=== PATIENT | male | born 1945 | race Hispanic/Latino ===

== ENCOUNTER 2017-06-15 23:43 | Emergency (ER) | payer MEDICARE, OTHER ==
[~2017-06-15] VITALS: Ht 172.7 cm; Wt 77.4 kg
[~2017-06-15 23:43] MED LIST: AMLODIPINE5 MG PO; ANTIVERT PO; CIPROFLOXACN500 MG PO; CLONIDINE0.1 MG PO; COLACE100 MG PO; DEBROX6.5 % AU; DOXYCYCL HYC100 MG PO; FLEXERIL OR; FLONASE NASAL50 MCG; KEFLEX500 MG PO; LEVOTHYROXIN25 MC1 PO; LISINOPRIL40 MG OR; LORTAB 5/3255 MG PO; MECLIZINE12.5 MG OR; ULTRAM50 M1 OR
[2017-06-15] MEDS ORDERED: AMLODIPINE10 MG PO (23:57)
[2017-06-15] MEDS ORDERED: OMEPRAZOLE20 M2 PO (23:58)
[2017-06-16 00:39] LABS: HEMATOCRIT 42.1 % (39.0-50.0); HEMOGLOBIN 14.5 g/dl (14.0-18.0); IMMATURE GRANULOCYTES 0.3 % (0.0-1.0); MEAN CELL VOLUME 84.4 fL CALC (80.0-100.0); MEAN CORPUSCULAR HGB 29.1 pG CALC (26.0-32.0); MEAN CORPUSCULAR HGB CONC 34.4 g/L CALC (32.0-36.0); NEUT# 3.57 thou/uL (1.82-7.42); RED BLOOD COUNT 4.99 mill/uL (4.70-6.10); RED CELL DISTRI WIDTH 12.4 % (11.5-15.5)
[2017-06-16 00:39] LABS: URINE BILIRUBIN - DIPSTICK NEGATIVE (NEGATIVE); URINE BLOOD DIPSTICK TRACE-LYSED (NEGATIVE); URINE CLARITY CLEAR; URINE COLOR YELLOW; URINE GLUCOSE - DIPSTICK NEGATIVE (NEGATIVE); URINE KETONE NEGATIVE (NEGATIVE); URINE LEUK ESTERASE NEGATIVE (NEGATIVE); URINE NITRITE - DIPSTICK NEGATIVE (Negative); URINE PH 5.5 (4.5-8.0); URINE PROTEIN - DIPSTICK NEGATIVE (NEG-TRACE); URINE UROBILINOGEN - DIPSTICK 0.2 E.U./dL (0.2)
[2017-06-16 00:55] LABS: ALBUMIN 4.7 g/dL (3.2-5.0); ALKALINE PHOSPHATASE 46 u/l (38-126); ANION GAP 17 (6-22 (CALC)); BILIRUBIN, TOTAL 0.7 mg/dL (0.0-1.4); BUN 14 mg/dL (8-23); BUN/CREATININE RATIO 17 (12-20 (CALC)); CALCIUM 9.6 mg/dL (8.4-10.2); CARBON DIOXIDE 27 mmol/l (22-30); CHLORIDE 103 mmol/l (95-108); CREATININE 0.8 mg/dL (0.7-1.3); GFR > 60 ML/MIN (>=60 (CALC)); GFR FOR AFR.AMER. > 60 ML/MIN (>=60 (CALC)); GLUCOSE 121 mg/dL (82-115); POTASSIUM 3.6 mmol/l (3.5-5.1); SGOT/AST 27 u/l (19-48); SGPT/ALT 49 u/l (11-66); SODIUM 144 mmol/l (137-146); TOTAL PROTEIN 7.5 g/dL (6.3-8.2)
[2017-06-16] MEDS ORDERED: ROBITUSSIN AC10 ML PO (01:21)
[2017-06-16] MEDS ORDERED: CIPROFLOXACN500 MG PO (01:21)
[2017-06-16 01:30] VITALS: BP 136/79
== END 2017-06-16 01:30 | disposition home or self-care (01) ==
LOC: ED 23:43
PROVIDERS: Emergency Medicine
DX: J06.9 Acute upper respiratory infection, unspecified (principal); H66.91 Otitis media, unspecified, right ear; R05 Cough; R50.9 Fever, unspecified; I10 Essential (primary) hypertension

== ENCOUNTER 2020-07-26 08:09 | Emergency (ER) | payer MEDICARE, MEDICAID ==
[~2020-07-26] VITALS: Ht 172.7 cm; Wt 75.0 kg
[~2020-07-26 08:09] MED LIST changes: +AMLODIPINE10 MG PO; +OMEPRAZOLE20 M2 PO; +ROBITUSSIN AC10 ML PO
[2020-07-26 08:43] LABS: HEMATOCRIT 44.9 % (39.0-50.0); IMMATURE GRANULOCYTES 0.2 % (0.0-5.0); MEAN CELL VOLUME 85.9 fL CALC (80.0-100.0); MEAN CORPUSCULAR HGB 28.7 pG CALC (26.0-32.0); MEAN CORPUSCULAR HGB CONC 33.4 g/dL CAL (32.0-36.0); NEUT# 8.71 thou/uL (1.82-7.42); RED BLOOD COUNT 5.23 mill/uL (4.70-6.10); RED CELL DISTRI WIDTH 12.5 % (11.5-15.5)
[2020-07-26] MEDS ORDERED: SYNTHROID88 MCG PO (08:45)
[2020-07-26 09:19] LABS: ANION GAP 12 (6-22 (CALC)); BUN 13 mg/dL (8-23); BUN/CREATININE RATIO 15 (12-20 (CALC)); CARBON DIOXIDE 29 mmol/l (22-30); CHLORIDE 103 mmol/l (95-108); CREATININE 0.9 mg/dL (0.7-1.3); GFR > 60 ML/MIN (>=60 (CALC)); GFR FOR AFR.AMER. > 60 ML/MIN (>=60 (CALC)); POTASSIUM 4.2 mmol/l (3.5-5.1); SODIUM 141 mmol/l (137-146)
[2020-07-26 09:39] LABS: URINE BILIRUBIN - DIPSTICK NEGATIVE (NEGATIVE); URINE BLOOD DIPSTICK LARGE (NEGATIVE); URINE COLOR YELLOW; URINE GLUCOSE - DIPSTICK NEGATIVE (NEGATIVE); URINE KETONE NEGATIVE (NEGATIVE); URINE PROTEIN - DIPSTICK 100 mg/dL (NEG-TRACE); URINE SPECIFIC GRAVITY >=1.030; URINE UROBILINOGEN - DIPSTICK 0.2 E.U./dL (0.2)
[2020-07-26 09:41] LABS: URINE LEUK ESTERASE SMALL (NEGATIVE); URINE NITRITE - DIPSTICK POSITIVE (Negative)
[2020-07-26 09:44] LABS: URINE WBC >100 WBC/hpf (0-5)
[2020-07-26 09:45] LABS: URINE RBC >100 RBC/hpf (0-5)
[2020-07-26 09:46] LABS: URINE BACTERIA MANY hpf
[2020-07-26 10:24] VITALS: BP 131/78
[2020-07-26] MEDS ORDERED: OMNI-PAC300 MG PO (10:56)
== END 2020-07-26 11:00 | disposition home or self-care (01) ==
LOC: ED 08:09
PROVIDERS: Family Medicine
DX: G89.18 Other acute postprocedural pain (principal); C61 Malignant neoplasm of prostate; I10 Essential (primary) hypertension; F17.200 Nicotine dependence, unspecified, uncomplicated; Z90.79 Acquired absence of other genital organ(s)
CPT/HCPCS: Q9967

== ENCOUNTER 2021-07-10 09:02 | Day surgery (SDC) | payer MEDICARE, OTHER ==
[~2021-07-10] VITALS: Ht 172.7 cm; Wt 72.6 kg
[~2021-07-10 09:02] MED LIST changes: +BYSTOLIC10 MG PO; +LIPITOR40 M1 PO; +OMNI-PAC300 MG PO; +SYNTHROID88 MCG PO
[2021-07-10] MEDS ORDERED: PERCOCET 5/325M1 TAB PO (11:01)
[2021-07-10 11:54] VITALS: BP 121/72
== END 2021-07-10 12:30 | disposition home or self-care (01) ==
LOC: ORM 09:02
PROVIDERS: ATTEND Surgery
PROC: 0WQF0ZZ Repair Abdominal Wall, Open Approach (ICD-10-PCS; principal; 2021-07-10)
DX: K43.2 Incisional hernia without obstruction or gangrene (principal); F17.210 Nicotine dependence, cigarettes, uncomplicated; Z85.46 Personal history of malignant neoplasm of prostate; Z90.79 Acquired absence of other genital organ(s); Z95.0 Presence of cardiac pacemaker; Z88.0 Allergy status to penicillin
CPT/HCPCS: J0131; J2710

== ENCOUNTER 2021-12-27 06:44 | Day surgery (SDC) | payer MEDICARE, OTHER ==
[~2021-12-27] VITALS: Ht 172.7 cm; Wt 74.4 kg
[~2021-12-27 06:44] MED LIST changes: -AMLODIPINE10 MG PO; +LEVOTHYROXIN100 MC1 PO; +MECLIZINE25 MG PO; +NORVASC5 M1 PO; +OMEPRAZOLE20 MG PO; +PERCOCET 5/325M1 TAB PO
[2021-12-27 09:26] VITALS: BP 105/66
== END 2021-12-27 09:50 | disposition home or self-care (01) ==
LOC: ORM 06:44
PROVIDERS: ATTEND Surgery
PROC: 0DBN8ZX Excision of Sigmoid Colon, Via Natural or Artificial Opening Endoscopic, Diagnostic (ICD-10-PCS; principal; 2021-12-27)
PROC: 0DJ08ZZ Inspection of Upper Intestinal Tract, Via Natural or Artificial Opening Endoscopic (ICD-10-PCS; 2021-12-27)
DX: K63.5 Polyp of colon (principal); K64.8 Other hemorrhoids; K21.9 Gastro-esophageal reflux disease without esophagitis; I10 Essential (primary) hypertension; F17.290 Nicotine dependence, other tobacco product, uncomplicated; L29.9 Pruritus, unspecified; Z79.899 Other long term (current) drug therapy; Z95.0 Presence of cardiac pacemaker

== ENCOUNTER 2024-08-04 12:03 | Emergency (ER) | payer MEDICARE, OTHER ==
[~2024-08-04] VITALS: Ht 172.7 cm; Wt 75.0 kg
[2024-08-04 12:38] VITALS: BP 137/70
[2024-08-04 12:45] VITALS: BP 123/70
[2024-08-04 12:56] LABS: BASO% 0.6 % (0-3); EOS% 2.3 % (0-8); HEMATOCRIT 44.4 % (39.0-50.0); HEMOGLOBIN 15.4 g/dl (14.0-18.0); IMMATURE GRANULOCYTES 0.2 % (0.0-5.0); LYMPH% 14.5 % (15-41); MEAN CELL VOLUME 84.9 fL CALC (80.0-100.0); MEAN CORPUSCULAR HGB 29.4 pG CALC (26.0-32.0); MEAN CORPUSCULAR HGB CONC 34.7 g/dL CAL (32.0-36.0); MONO% 9.3 % (2-13); NEUT# 7.41 thou/uL (1.82-7.42); NEUT% 73.1 % (42-76); RED BLOOD COUNT 5.23 mill/uL (4.70-6.10)
[2024-08-04 13:01] VITALS: BP 136/73
[2024-08-04 13:15] VITALS: BP 136/74
[2024-08-04 13:21] LABS: ALBUMIN 4.7 g/dL (3.2-5.0); ALKALINE PHOSPHATASE 39 u/l (38-126); ANION GAP 16 (6-22 (CALC)); BILIRUBIN, TOTAL 0.8 mg/dL (0.2-1.3); CARBON DIOXIDE 29 mmol/l (22-30); CHLORIDE 101 mmol/l (95-108); POTASSIUM 3.7 mmol/l (3.5-5.1); SGOT/AST 28 u/l (19-48); SODIUM 142 mmol/l (137-146); TOTAL PROTEIN 7.5 g/dL (6.3-8.2)
[2024-08-04 13:25] LABS: BUN 19 mg/dL (8-23); BUN/CREATININE RATIO 23 (12-20 (CALC)); CREATININE 0.8 mg/dL (0.7-1.3); ESTIMATED GFR 91 ML/MIN (>=90 (CALC))
[2024-08-04] MEDS ORDERED: HYDROCO/APAP1 TA9 PO (14:23)
[2024-08-04] MEDS ORDERED: FLEXERIL5 M1 PO (14:23)
[2024-08-04] MEDS ORDERED: HYDROcodone 5 MG/Acetaminophen 325 MG/COMBO PO ONE (14:45)
[2024-08-04 14:52] VITALS: BP 136/74
== END 2024-08-04 14:54 | disposition home or self-care (01) ==
LOC: ED 12:03
PROVIDERS: Family Medicine
DX: M25.512 Pain in left shoulder (principal); M25.511 Pain in right shoulder; I10 Essential (primary) hypertension; F17.200 Nicotine dependence, unspecified, uncomplicated; Z95.0 Presence of cardiac pacemaker